=== PATIENT | female | born 1955 | race Caucasian/White ===

== ENCOUNTER 2023-08-30 15:21 | Emergency (ER) | payer OTHER, MEDICAID ==
[2023-08-30] MEDS ORDERED: cefTRIAXone SOD 1,000 MG VL IM ONE (18:45)
[2023-08-30] MEDS ORDERED: SULF800T23 PO (18:50)
[2023-08-30 19:00] VITALS: BP 119/68; TEMP 97.9
[2023-08-30 19:01] VITALS: PULSE 73; RESP 16; O2SAT 98
== END 2023-08-30 19:54 | disposition home or self-care (01) ==
LOC: ER 15:21
DX: L03.032 Cellulitis of left toe (principal); W22.8XXA Striking against or struck by other objects, initial encounter; Y93.89 Activity, other specified; Y92.89 Other specified places as the place of occurrence of the external cause; Y99.8 Other external cause status
CPT/HCPCS: 73630; 99283; J0696